=== PATIENT | female | born 1970 | race Two or more races ===

== ENCOUNTER 2017-03-23 05:46 | Observation (INO) | payer BC ==
[2017-03-20 17:07] LABS: ASPARTATE AMINO TRANSFERASE 14 U/L (15-37); BLOOD UREA NITROGEN 12 mg/dL (7-18)
[~2017-03-23] VITALS: Ht 165.1 cm; Wt 65.4 kg
[~2017-03-23 05:46] MED LIST: ASCO10004 PO; ASPI-496 PO; BENA40TA2 PO; DILT360C10 PO; FLUO40CA9 PO; HYDR12.53 PO; OMEG-76 PO
[2017-03-23 06:31] VITALS: BP 125/79
[2017-03-23] MEDS ORDERED: LACTATED RINGERS 1,000 ML IV SCH (06:31)
[2017-03-23] MEDS ORDERED: ESTROGENS CONJUGATED VAG CRM 0.625MG/1G, 30GM ONE (06:48)
[2017-03-23] MEDS ORDERED: GABAPENTIN 300 MG CAPSULE PO STA (06:48)
[2017-03-23] MEDS ORDERED: FLUORESCEIN SODIUM 500 MG/5 ML ONE (06:48)
[2017-03-23] MEDS ORDERED: BUPIVACAINE/PF-EPI 0.25% 1:200K ONE (06:48)
[2017-03-23] MEDS ORDERED: ACETAMINOPHEN 500 MG TABLET PO STA (06:48)
[2017-03-23] MEDS ORDERED: SILVER NITRATE STICK TP ONE (06:49)
[2017-03-23] MEDS ORDERED: SCOPOLAMINE PATCH, 1.5MG PATCH.TD72 TD ONE (07:13)
[2017-03-23] MEDS ORDERED: KETAMINE 10 MG/ML, 20ML ONE (07:17)
[2017-03-23] MEDS ORDERED: FENTANYL PF 250 MCG/5ML ONE (07:17)
[2017-03-23] MEDS ORDERED: MIDAZOLAM 1 MG/ML, 2ML ONE (07:18)
[2017-03-23] MEDS ORDERED: GLYCOPYRROLATE 0.2MG/1ML ONE (07:42)
[2017-03-23] MEDS ORDERED: CEFAZOLIN 1,000 MG ONE (07:42)
[2017-03-23] MEDS ORDERED: PROPOFOL 10 MG/ML, 50ML ONE (07:42)
[2017-03-23] MEDS ORDERED: ONDANSETRON 2MG/ML, 2ML ONE (07:42)
[2017-03-23] MEDS ORDERED: DEXAMETHASONE 4 MG/ML, 5ML ONE (07:42)
[2017-03-23] MEDS ORDERED: NEOSTIGMINE 1 MG/ML, 10ML ONE (07:42)
[2017-03-23] MEDS ORDERED: PROPOFOL 10 MG/ML, 20ML ONE (07:42)
[2017-03-23] MEDS ORDERED: ROCURONIUM 10 MG/ML ONE (07:42)
[2017-03-23] MEDS ORDERED: OXYcodone 5 MG/5 ML ORAL.SOL UDC PO PRN (09:30)
[2017-03-23] MEDS ORDERED: METOCLOPRAMIDE 5 MG/ML, 2ML IV PRN (09:30)
[2017-03-23] MEDS ORDERED: morphine SULFATE 10 MG/ML, 1ML IV PRN ×2 (09:30→19:30)
[2017-03-23] MEDS ORDERED: MEPERIDINE/PF 25MG/0.5ML IVPush PRN (09:30)
[2017-03-23] MEDS ORDERED: KETOROLAC 30 MG/1 ML IV PRN (09:30)
[2017-03-23] MEDS ORDERED: MEPERIDINE/PF 25MG/0.5ML ONE (09:30)
[2017-03-23] MEDS ORDERED: OXYcodone 5 MG/5 ML ORAL.SOL UDC ONE (09:31)
[2017-03-23] MEDS ORDERED: KETOROLAC 30 MG/1 ML ONE (09:35)
[2017-03-23] MEDS ORDERED: FENTANYL PF 100 MCG/2ML ONE (09:58)
[2017-03-23] MEDS: FENTANYL PF 100 MCG/2ML IV PRN ×3 (10:05→10:45)
[2017-03-23] MEDS ORDERED: MORPHINE SULFATE 4 MG/ML, 1ML ONE ×2 (11:36→12:12)
[2017-03-23] MEDS ORDERED: MEPERIDINE/PF 50 MG/ML ONE (12:34)
[2017-03-23] MEDS ORDERED: MEPERIDINE/PF 50 MG/ML IM PRN (13:00)
[2017-03-23] MEDS ORDERED: PROMETHAZINE 25 MG SUPP PR PRN (13:00)
[2017-03-23] MEDS ORDERED: OXYcodone/APAP 5/325MG TABLET ONE (13:25)
[2017-03-23] MEDS: OXYcodone/APAP 5/325MG TABLET PO PRN ×3 (13:35→22:58)
[2017-03-23 18:50] VITALS: BP 129/83
[2017-03-23] MEDS ORDERED: PROMETHAZINE 25 MG/ML, 1ML IV ONE (19:30)
[2017-03-23] MEDS ORDERED: ONDANSETRON 2MG/ML, 2ML IV PRN (19:30)
[2017-03-23] MEDS ORDERED: HYDROcodone/APAP 5/325 TABLET PO PRN (19:30)
[2017-03-23 23:40] VITALS: BP 124/80
[2017-03-24 02:59] VITALS: BP 114/78
[2017-03-24] MEDS: OXYcodone/APAP 5/325MG TABLET PO PRN ×3 (02:59→13:25)
[2017-03-24] MEDS ORDERED: ASPIRIN 81 MG TABLET EC PO SCH (06:00)
[2017-03-24 06:23] VITALS: BP 116/72
[2017-03-24] MEDS ORDERED: FLUOXETINE 20 MG CAPSULE PO SCH (09:00)
[2017-03-24] MEDS ORDERED: BENAZEPRIL 20 MG TABLET PO SCH (09:00)
[2017-03-24] MEDS ORDERED: OMEGA-3/FISH OIL CAPSULE PO SCH (09:00)
[2017-03-24] MEDS ORDERED: ASCORBIC ACID 500 MG TABLET PO SCH (09:00)
[2017-03-24] MEDS ORDERED: DILTIAZEM CD 180 MG CAP.ER.24H PO SCH (09:00)
[2017-03-24 12:00] VITALS: BP 109/63
[2017-03-24] MEDS ORDERED: OXYcodone/APAP 7.5/325MG TABLET PO PRN (14:00)
[2017-03-24 14:10] VITALS: BP 108/55
[2017-03-24] MEDS ORDERED: OXYC-223 PO (14:48)
[2017-03-24] MEDS ORDERED: DOCU-30 PO (14:49)
== END 2017-03-24 15:02 | disposition home or self-care (01) ==
LOC: OUT 05:46 → 4NOR 18:00 → OUT 18:29 → DCLOUNGE 03-24 14:45
PROVIDERS: ADMIT Obstetrics & Gynecology; ATTEND Obstetrics & Gynecology
DX: D25.1 Intramural leiomyoma of uterus (principal); N92.0 Excessive and frequent menstruation with regular cycle; N94.6 Dysmenorrhea, unspecified; I10 Essential (primary) hypertension; F41.9 Anxiety disorder, unspecified; Z86.73 Personal history of transient ischemic attack (TIA), and cerebral infarction without residual deficits; Z98.890 Other specified postprocedural states
CPT/HCPCS: 36415; 52000; 58260; 80053; 84703; 85025; 86850; 86900; 88307; 93005; G0378; J0690; J1100; J1885; J2175; J2250; J2405; J2704; J2710; J3010; J7120; J3490

== ENCOUNTER 2020-06-26 06:56 | Outpatient (CLI) | payer BC, OTHER ==
[~2020-06-26 06:56] MED LIST changes: +ASCO100018 PO; -ASCO10004 PO; -BENA40TA2 PO; +BENA40TA3 PO; -DILT360C10 PO; +DILT360C32 PO; +DOCU-131 PO; +HYDR12.517 PO; -HYDR12.53 PO; +OXYC-306 PO
== END 2020-06-26 23:59 | disposition home or self-care (01) ==
LOC: CFH 06:56
PROVIDERS: ATTEND Obstetrics & Gynecology
DX: N60.02 Solitary cyst of left breast (principal); N60.01 Solitary cyst of right breast
CPT/HCPCS: 76642; 77066; G0279